=== PATIENT | male | born 1995 | race African-American/Black ===

== ENCOUNTER 2018-05-23 23:23 | Emergency (ER) | payer OTHER, SELFPAY ==
[~2018-05-23] VITALS: Ht 188 cm; Wt 89.1 kg
[2018-05-23 23:24] VITALS: BP 135/73
[2018-05-24] MEDS ORDERED: LIDO4CRE4 TOP (02:19)
--- NOTE | 2018-05-24 08:00 | REP ---
AP pelvis: There are no comparisons. There is internal fixation of the left acetabulum. Mineralization is normal. The sacroiliac articulations and hip articulations are unremarkable. There is no acute fracture or dislocation. There are no calcifications. Electronically Signed by Jose Goodwin MD 05/24/2018 07:51 A
--- NOTE | 2018-05-24 08:00 | REP ---
Left hip single frog-leg view: The AP view is included on the AP pelvis performed this same date. There is internal fixation of the left acetabulum. Left hip articulations grossly unremarkable. There is no fracture or dislocation. Mineralization is normal. There are no calcifications. Impression: No fracture or dislocation. Internal fixation of the left acetabulum. Electronically Signed by Jose Goodwin MD 05/24/2018 07:52 A
== END 2018-05-24 02:26 | disposition home or self-care (01) ==
LOC: M ED 23:23
DX: M25.552 Pain in left hip (principal); Z87.81 Personal history of (healed) traumatic fracture; Z72.89 Other problems related to lifestyle; Z98.890 Other specified postprocedural states

== ENCOUNTER 2018-05-31 19:27 | Emergency (ER) | payer OTHER, SELFPAY ==
[~2018-05-31] VITALS: Ht 188 cm; Wt 88.6 kg
[~2018-05-31 19:27] MED LIST: LIDO4CRE4 TOP
[2018-05-31] MEDS ORDERED: ONDANSETRON 4MG/2ML VIAL (J2405) IV ONE (20:45)
[2018-05-31] MEDS ORDERED: NS 1,000 ML IV ONE (20:45)
[2018-05-31 20:52] LABS: BASO % 0.7 % (0.0-1.0); EOS # 0.1 10^3/uL (0.0-0.50); EOS % 1.3 % (0.0-3.0); HEMATOCRIT 48.6 % (42.0-52.0); HEMOGLOBIN 16.2 g/dl (13.5-17.5); LYMPH # 1.9 10^3/uL (1.5-6.5); LYMPH % 34.1 % (24.0-44.0); MEAN CORPUSCULAR HEMOGLOBIN 29.4 pg (27.0-33.0); MEAN CORPUSCULAR HGB CONC 33.3 g/dl (32.0-36.5); MEAN CORPUSCULAR VOLUME 88.2 fl (80.0-96.0); MONO # 0.4 10^3/uL (0.0-0.8); MONO % 7.9 % (0.0-5.0); NEUTROPHILS % 55.3 % (36.0-66.0); PLATELET COUNT, AUTOMATED 254 10^3/uL (150-450); RED BLOOD COUNT 5.51 10^6/uL (4.30-6.10); WHITE BLOOD COUNT 5.5 10^3/uL (4.0-10.0)
[2018-05-31 21:09] LABS: ALT/SGPT 33 U/L (12-78); BILIRUBIN,DIRECT 0.1 MG/DL (0.0-0.2); BILIRUBIN,TOTAL 0.5 MG/DL (0.2-1.0); BLOOD UREA NITROGEN 14 MG/DL (7-18); CALCIUM LEVEL 9.4 MG/DL (8.5-10.1); CARBON DIOXIDE LEVEL 29 MEQ/L (21-32); CHLORIDE LEVEL 102 MEQ/L (98-107); CREATININE FOR GFR 1.13 MG/DL (0.70-1.30); GLOMERULAR FILTRATION RATE > 60.0 (>60); GLUCOSE, FASTING 98 MG/DL (70-100); LIPASE 89 U/L (73-393); POTASSIUM SERUM 4.2 MEQ/L (3.5-5.1); SODIUM LEVEL 141 MEQ/L (136-145)
[2018-05-31] MEDS ORDERED: PROT1TAB2 PO (22:14)
[2018-05-31] MEDS ORDERED: PANTOPRAZOLE 40MG TAB (PROTONIX) PO ONE (22:15)
[2018-05-31 22:26] VITALS: BP 109/66
--- NOTE | 2018-06-01 08:24 | REP ---
Clinical: Diarrhea and abdominal pain. Technique: Upright view of the chest with supine and upright views of the abdomen and pelvis. Findings: Frontal upright view of the chest demonstrates no acute cardiopulmonary process or free air below the diaphragm to suspect pneumoperitoneum. Supine and upright views of the abdomen and pelvis demonstrate nonspecific bowel gas pattern without obstruction or perforation. No organomegaly. No abnormal calcifications. Skeletal structures are relatively normal. Evidence for prior orthopedic repair for left hip/acetabular fracture Impression: Nonspecific bowel gas pattern. Electronically Signed by Brendan Morelos MD 06/01/2018 08:16 A
== END 2018-05-31 22:28 | disposition home or self-care (01) ==
LOC: M ED 19:27
DX: R10.13 Epigastric pain (principal); K21.9 Gastro-esophageal reflux disease without esophagitis; R11.2 Nausea with vomiting, unspecified; R19.7 Diarrhea, unspecified; F17.200 Nicotine dependence, unspecified, uncomplicated
CPT/HCPCS: 36415; 74019; 80048; 80076; 83690; 85025; 96374; 99284; J2405

== ENCOUNTER 2018-06-16 02:12 | Emergency (ER) | payer SELFPAY ==
[~2018-06-16] VITALS: Ht 188 cm; Wt 95.5 kg
[~2018-06-16 02:12] MED LIST changes: +PROT1TAB2 PO
[2018-06-16] MEDS ORDERED: HYOS1TAB PO (04:39)
[2018-06-16 04:51] VITALS: BP 117/63
== END 2018-06-16 04:53 | disposition home or self-care (01) ==
LOC: M ED 02:12
DX: K80.50 Calculus of bile duct without cholangitis or cholecystitis without obstruction (principal)